=== PATIENT | male | born 1995 | race Hispanic/Latino ===

== ENCOUNTER 2020-05-25 11:25 | Emergency (ER) | payer SELFPAY | END 2020-05-25 12:03 | disposition home or self-care (01) | LOC: EDH 11:25 → EEVIPCON 11:25 → EDH 12:03 | DX: S29.012A Strain of muscle and tendon of back wall of thorax, initial encounter (principal); S80.212A Abrasion, left knee, initial encounter; Z72.0 Tobacco use; V49.49XA Driver injured in collision with other motor vehicles in traffic accident, initial encounter; Y93.89 Activity, other specified; Y92.89 Other specified places as the place of occurrence of the external cause; Y99.8 Other external cause status ==